=== PATIENT | male | born 1935 | race Caucasian/White ===

== ENCOUNTER 2021-06-06 19:06 | Emergency (ER) | payer OTHER ==
[~2021-06-06] VITALS: Ht 180.3 cm; Wt 77.1 kg
[2021-06-06 20:32] LABS: ABSOLUTE NEUTROPHILS 4.1 thou/uL (1.4-8.2); BASOPHILS 0.8 % (0.0-2.0); EOSINOPHILS 4.9 % (0.0-3.0); HEMATOCRIT 36.6 % (42.0-52.0); HEMOGLOBIN 12.4 gm/dL (14.0-18.0); LYMPHOCYTES 22.9 % (24.0-44.0); MCH 32.5 pg (26.0-34.0); MCHC 33.8 g/dL (28.0-37.0); MCV 96.1 fL (80.0-100.0); MONOCYTES 8.4 % (1.0-8.0); PLATELET COUNT 187 thou/uL (150-400); RDW 13.9 % (10.5-14.5); WBC 6.6 thou/uL (4.0-11.0)
[2021-06-06 20:38] LABS: CALCIUM 9.3 mg/dL (8.5-10.1); CREATININE 1.7 mg/dL (0.7-1.3); POTASSIUM 4.1 mmol/L (3.5-5.1)
[2021-06-06 20:45] LABS: ALBUMIN 3.4 g/dL (3.4-5.0); APTT 50.6 Seconds (24.5-32.8); INR 2.24; PROTIME 23.5 Seconds (10.5-12.1); TOTAL BILIRUBIN 1.1 mg/dL (0.2-1.0); TOTAL PROTEIN 7.1 g/dL (6.4-8.2)
[2021-06-06 21:15] LABS: URINE BILIRUBIN NEGATIVE (Negative); URINE BLOOD TRACE (Negative); URINE CLARITY CLEAR; URINE COLOR YELLOW; URINE GLUCOSE-RANDOM* NEGATIVE (Negative); URINE KETONES NEGATIVE (Negative); URINE LEUKOCYTES-REFLEX NEGATIVE (Negative); URINE NITRITE-REFLEX NEGATIVE (Negative); URINE PROTEIN (DIPSTICK) NEGATIVE (Negative); URINE SPECIFIC GRAVITY 1.025 (1.005-1.035); URINE UROBILINOGEN 0.2 E.U./dl (0.2-1.0)
[2021-06-06] MEDS ORDERED: DOXYCYCLINE 10100 MG PO (21:36)
[2021-06-06 21:56] VITALS: BP 126/66
== END 2021-06-06 22:41 | disposition home or self-care (01) ==
LOC: ER 19:06
PROVIDERS: Nurse Practitioner
DX: S81.802A Unspecified open wound, left lower leg, initial encounter (principal); S40.012A Contusion of left shoulder, initial encounter; S09.90XA Unspecified injury of head, initial encounter; I83.029 Varicose veins of left lower extremity with ulcer of unspecified site; I87.8 Other specified disorders of veins; W07.XXXA Fall from chair, initial encounter; Y93.89 Activity, other specified; Y92.89 Other specified places as the place of occurrence of the external cause; Y99.8 Other external cause status

== ENCOUNTER → 2021-06-13 | Outpatient (CLI) | payer OTHER ==
[~2021-06-13] MED LIST: DOXYCYCLINE 10100 MG PO
== END ==
LOC: HYPER 08:10
PROVIDERS: ATTEND Emergency Medicine
DX: E11.622 Type 2 diabetes mellitus with other skin ulcer (principal); L97.822 Non-pressure chronic ulcer of other part of left lower leg with fat layer exposed; I87.2 Venous insufficiency (chronic) (peripheral); R60.1 Generalized edema; Z79.01 Long term (current) use of anticoagulants; Z79.899 Other long term (current) drug therapy

== ENCOUNTER → 2021-06-27 | Outpatient (CLI) | payer OTHER | LOC: HYPER 10:47 | PROVIDERS: ATTEND Emergency Medicine | DX: E11.622 Type 2 diabetes mellitus with other skin ulcer (principal); L97.822 Non-pressure chronic ulcer of other part of left lower leg with fat layer exposed; L84 Corns and callosities; I87.2 Venous insufficiency (chronic) (peripheral); R60.1 Generalized edema; Z79.01 Long term (current) use of anticoagulants ==

== ENCOUNTER 2021-07-03 05:41 | Emergency (ER) | payer OTHER ==
[~2021-07-03] VITALS: Ht 180.3 cm; Wt 75.7 kg
[2021-07-03] MEDS ORDERED: OMEGA 3 1,0001 EACH PO (06:06)
[2021-07-03] MEDS ORDERED: METFORMIN HCL500 MG PO (06:07)
[2021-07-03] MEDS ORDERED: LISINOPRIL10 MG PO (06:07)
[2021-07-03] MEDS ORDERED: LOPRESSOR50 MG PO (06:08)
[2021-07-03 06:35] LABS: ABSOLUTE NEUTROPHILS 4.8 thou/uL (1.4-8.2); BASOPHILS 0.8 % (0.0-2.0); EOSINOPHILS 7.3 % (0.0-3.0); HEMATOCRIT 35.5 % (42.0-52.0); HEMOGLOBIN 11.9 gm/dL (14.0-18.0); LYMPHOCYTES 15.7 % (24.0-44.0); MCH 32.4 pg (26.0-34.0); MCHC 33.4 g/dL (28.0-37.0); PLATELET COUNT 174 thou/uL (150-400); POLYS 69.2 % (36.0-66.0); RBC 3.66 mil/uL (4.50-6.00); RDW 14.2 % (10.5-14.5); WBC 6.9 thou/uL (4.0-11.0)
[2021-07-03 06:37] LABS: URINE BILIRUBIN NEGATIVE (Negative); URINE BLOOD NEGATIVE (Negative); URINE CLARITY CLEAR; URINE COLOR YELLOW; URINE GLUCOSE-RANDOM* NEGATIVE (Negative); URINE KETONES NEGATIVE (Negative); URINE LEUKOCYTES-REFLEX NEGATIVE (Negative); URINE NITRITE-REFLEX NEGATIVE (Negative); URINE PROTEIN (DIPSTICK) NEGATIVE (Negative); URINE SPECIFIC GRAVITY 1.025 (1.005-1.035); URINE UROBILINOGEN 0.2 E.U./dl (0.2-1.0)
[2021-07-03 06:50] LABS: CALCIUM 8.6 mg/dL (8.5-10.1); CREATININE 1.6 mg/dL (0.7-1.3); POTASSIUM 4.2 mmol/L (3.5-5.1)
[2021-07-03] MEDS ORDERED: KEFLEX250 MG PO (07:25)
[2021-07-03] MEDS ORDERED: IBUPROFEN 600600 M1 PO (07:25)
[2021-07-03] MEDS ORDERED: APAP W/CODEINE1 TA2 PO (07:32)
[2021-07-03 07:42] VITALS: BP 130/72
--- NOTE | 2021-07-03 12:38 | EKG ---
[place] [address] [employer] [place] [address] ELECTROCARDIOGRAM REPORT Name: ASHLY SANTA Room #: REG AKIKO Powell#: [id number] Admission: 07/03/21 Attend Phys: Discharge: Date of : 39 Report #: [id number] [facility] ED Test Date: 2021-07-03 Test Time: 06:05:39 Pat Name: ASHLY SANTA Department: Room: Gender: M Mysql Database Developer: alissa ryan : 1935 Requested By: Roosevelt Tesfaye Order Number: [id number] MD: Riki Claudio Measurements Intervals Keyser Rate: 72 P: DC: QRS: -51 QRSD: 140 T: 143 QT: 432 QTc: 473 Interpretive Statements Probable sinus rhythm Occasional premature ventricular complexes Left bundle branch block Compared to ECG 05/16/1998 16:40:00 Ventricular premature complex(es) now present Left bundle-branch block now present Electronically Signed On 07-03-2021 12:38:50 [employer]ARC[employer] DETECTIVE by Riki Claudio [email or web address] <ELECTRONICALLY SIGNED> By: Riki Claudio MD, [facility] 07/03/21 1238 [id number] 4 Riki Claudio MD, FACC /EPI
== END 2021-07-03 20:20 | disposition home or self-care (01) ==
LOC: ER 05:41
PROVIDERS: Emergency Medicine
DX: S20.213A Contusion of bilateral front wall of thorax, initial encounter (principal); R53.1 Weakness; Z79.899 Other long term (current) drug therapy; W19.XXXA Unspecified fall, initial encounter; Y93.89 Activity, other specified; Y92.89 Other specified places as the place of occurrence of the external cause; Y99.8 Other external cause status

== ENCOUNTER 2021-07-25 03:05 | Inpatient (IN) | payer OTHER ==
[2021-07-25] VITALS (7 sets, daily range): BP systolic 95–166; BP diastolic 36–73
[~2021-07-25] VITALS: Ht 182.9 cm; Wt 77.0 kg
--- NOTE | ~2021-07-25 | EMS ---
[address] [address] EMS Patient Care Report Name: ASHLY SANTA Room #: 449-I ADM IN M.R.#: [id number] Admission: 07/25/21 Attend Phys: Fausto Miller MD Discharge: Date of : 39 Report #: [id number] THIS REPORT FOR: //name// Report Transmitted: 07/27/2021 11:08 EMS Care Summary [place], [place]/[facility] Incident [id number] @ 07/25/2021 02:36 Incident Location [address] [facility] Patient ASHLY ELLIOTT Male, 86 Years 1935 Patient Address [address] [place] [address] Patient History Cardiac Condition - Other, Patient Medications Warfarin, Chief Complaint SOB w/ exertion Disposition Transported No Lights/[place] Dispatch Reason Breathing Problem Transported To [facility] Narrative pt found seated in recliner chair, a&o, NAD. he states he hasn't felt well since getting his Covid booster several days ago. for past 6 hrs he c/o increased SOB w/ movement and c/o "runny nose". staff reports pt is afebrile. pt req eval at [facility]. he is able to seat self on cot, VS, refuses IV, transport w/o incident. [address] [address] EMS Patient Care Report Name: ASHLY SANTA Room #: 449-I [facility] IN ..#: [id number] Admission: 07/25/21 Attend Phys: Fausto Miller MD Discharge: Date of : 39 Report #: [id number] Initial Vitals @02:48P: 54,R: 20,BP: 122/76,Pain: 0/10,GCS: 15,SpO2: 91,Revised Trauma: 12, Assessments @02:46MENTAL:No Abnormalities,SKIN:No Abnormalities,HEENT:Head/Face: Other,LUNG SOUNDS:ABDOMEN:PELVIS//GI:EXTREMITIES:PULSE:Radial: 2+ Normal,NEURO:Other, Impression Shortness of breath Procedures @02:57 Oxygen FlowRate: 4 Device: Nasal Cannula (NC) Response: UnchangedSucceeded @02:50 Stretcher Response: Unchanged @02:56 3-Lead ECG Response: Unchanged @02:46 ALS Assessment Timeline 02:35,Call Received 02:35,Dispatch Notified 02:36,Dispatched 02:37,En Route 02:41,On Scene 02:46,At Patient 02:46,ALS Assessment, 02:48,BP: 122/76 M,PULSE: 54,RR: 20 R,SPO2: 91 Ox,ETCO2: ,BG: ,PAIN: 0,GCS: 15, 02:50,Stretcher,Response: Unchanged 02:56,3-Lead ECG,Response: Unchanged 02:57,Oxygen FlowRate: 4 Device: Nasal Cannula (NC) Response: UnchangedSucceeded, 02:59,Depart Scene 03:02,At Destination 03:14,Call Closed Disclaimer v1.1 Copyright 2020 [employer], [employer] This EMS Care Summary contains data elements from the applicable legal record (which may be displayed differently). It is designed to provide pertinent information for the following purposes: continuity of care, clinical quality, and state data reporting. The complete legal record is available to ED staff and administrators of the receiving hospital in [employer]'s Patient Tracker. All data is provided "as is."
[~2021-07-25 03:05] MED LIST changes: +APAP W/CODEINE1 TA2 PO; +IBUPROFEN 600600 M1 PO; +KEFLEX250 MG PO; +LISINOPRIL10 MG PO; +LOPRESSOR50 MG PO; +METFORMIN HCL500 MG PO; +OMEGA 3 1,0001 EACH PO
[2021-07-25] MEDS ORDERED: ALPHAGAN P5 ML OPHTHALMIC (03:26)
[2021-07-25] MEDS ORDERED: REFRESH CELLUVI1 APP OPHTHALMIC (03:28)
[2021-07-25] MEDS ORDERED: HYDROCHLOROTH12.5 M1 PO (03:29)
[2021-07-25] MEDS ORDERED: CHILDREN'S ZYRT10 M1 PO (03:29)
[2021-07-25] MEDS ORDERED: XALATAN2.5 M1 OPHTHALMIC (03:30)
[2021-07-25] MEDS ORDERED: LIPITOR20 MG PO ×2 (03:31→03:32)
[2021-07-25] MEDS ORDERED: CARDIOTAB PO (03:33)
[2021-07-25] MEDS ORDERED: TIMOLOL MALEATE5 M2 OPHTHALMIC (03:34)
[2021-07-25] MEDS ORDERED: VITAMIN E1000 UNIT PO (03:35)
[2021-07-25] MEDS ORDERED: WARFARIN SODIUM5 MG PO (03:35)
[2021-07-25 03:52] LABS: ABSOLUTE NEUTROPHILS 4.9 thou/uL (1.4-8.2); BASOPHILS 0.9 % (0.0-2.0); HEMATOCRIT 34.9 % (42.0-52.0); HEMOGLOBIN 11.7 gm/dL (14.0-18.0); LYMPHOCYTES 16.6 % (24.0-44.0); MCH 32.7 pg (26.0-34.0); MCHC 33.5 g/dL (28.0-37.0); MCV 97.5 fL (80.0-100.0); MONOCYTES 6.2 % (1.0-8.0); PLATELET COUNT 220 thou/uL (150-400); POLYS 69.3 % (36.0-66.0); RBC 3.58 mil/uL (4.50-6.00); RDW 15.3 % (10.5-14.5); WBC 7.1 thou/uL (4.0-11.0)
[2021-07-25 04:04] LABS: CALCIUM 8.9 mg/dL (8.5-10.1); CREATININE 2.1 mg/dL (0.7-1.3)
[2021-07-25 04:05] LABS: POTASSIUM 4.9 mmol/L (3.5-5.1)
[2021-07-25 04:14] LABS: TOTAL BILIRUBIN 0.9 mg/dL (0.2-1.0); TOTAL PROTEIN 6.9 g/dL (6.4-8.2)
--- NOTE | 2021-07-25 07:27 | EKG ---
[address] [address] ELECTROCARDIOGRAM REPORT Name: ASHLY SANTA Room #: 449-I ADM IN M.R.#: [id number] Admission: 07/25/21 Attend Phys: Guido Gray MD Discharge: Date of : 39 Report #: [id number] [facility] ED Test Date: 2021-07-25 Test Time: 03:15:34 Pat Name: ASHLY SANTA Department: Room: [facility] Gender: M Plater Helper: steve : 1935 Requested By: Chris Ward Order Number: [id number] MD: Edu Trinh Measurements Intervals [place] Rate: 52 P: OR: QRS: -54 QRSD: 155 T: 156 QT: 490 QTc: 456 Interpretive Statements Atrial fibrillation Ventricular premature complex Left bundle branch block Compared to ECG 07/03/2021 06:05:39 No significant changes Electronically Signed On 07-25-2021 7:27:18 [employer] INSTALLER by Edu Trinh [email or web address] <ELECTRONICALLY SIGNED> By: Edu Trinh MD, [facility] 07/25/21 0727 4 Edu Trinh MD, FACC /EPI
[2021-07-25 09:45] LABS: FOLIC ACID 25.1 ng/mL (8.6-58.9)
[2021-07-25 11:22] LABS: INR 2.97; PROTIME 30.7 Seconds (10.5-12.1)
--- NOTE | 2021-07-25 13:27 | 2DMMODE ---
[facility] [place] [address] 2 D/M-MODE ECHOCARDIOGRAM Name: ASHLY SANTA Room #: 449-I ADM IN .R.#: [id number] Admission: 07/25/21 Attend Phys: Guido Gray MD Discharge: Date of : 39 Report #: [id number] THIS REPORT FOR: cc: NO FAMILY PHYSICIAN or PCP NO FAMILY PHYSICIAN or PCP Dimitris Hutchins MD ~ APPROVED REPORT Study performed: 07/25/2021 13:01:16 EXAM: Comprehensive 2D, Doppler, and color-flow Echocardiogram Patient Location: In-Patient Room #: 449 Status: routine BSA: 1.99 HR: 70 bpm Rhythm: Atrial Fibrillation Other Information Study Quality: Adequate Indications Aortic Valve Disease Congestive Heart Failure Mitral Valve Disease Dyspnea CAD 2D Dimensions IVSd: 12.81 (7-11mm) LVOT Diam: 21.42 (18-24mm) LVDd: 53.62 mm PWd: 11.32 (7-11mm) Ascending Ao: 31.34 (22-36mm) LVDs: 41.92 (25-40mm) Left Atrium: 48.45 (27-40mm) Aortic Root: 35.72 mm Volumes Left Atrial Volume (Systole) Single Plane 4CH: 49.58 mL Single Plane 2CH: 38.46 mL Biplane LA Volume: 52.00 mL LA ESV Index: 26.00 mL/m2 Aortic Valve AoV Peak Enrrique.: 2.15 m/s [facility] [address] [place] [address] 2 D/M-MODE ECHOCARDIOGRAM Name: ASHLY SANTA Room #: 449-I ADM IN ..#: [id number] Admission: 07/25/21 Attend Phys: Guido Gray, Discharge: Date of : 39 Report #: [id number] AO Peak Gr.: 18.55 mmHg LVOT Max P.81 mmHg AO Mean Gr.: 10.17 mmHg LVOT Mean P.44 mmHg AO V2 Mean: 1.51 m/s LVOT Max V: 0.45 m/s AO V2 VTI: 52.79 cm LVOT Mean V: 0.31 m/s GRISELDA (VTI): 0.87 cm2 LVOT V1 VTI: 12.70 cm GRISELDA Vmax: 0.75 cm2 SV (LVOT): 45.75 mL Mitral Valve E/A Ratio: 86.0 MV Decel. Time: 182.80 ms MV E Max Enrrique.: 0.86 m/s MV A Enrrique.: 0.01 m/s MV PHT: 53.01 ms Pulmonary Valve PV Peak Enrrique.: 0.66 m/s PV Peak Gr.: 1.76 mmHg FL End Vmax: 0.99 m/s Tricuspid Valve TR Peak Enrrique.: 3.29 m/s RAP Estimate: 7.00 mmHg TR Peak Gr.: 43.29 mmHg RVSP: 50.00 mmHg Left Ventricle The left ventricle is normal size. There is normal LV segmental wall motion. Mild concentric left ventricular hypertrophy. Left ventricular systolic function is moderately decreased. LVEF is 35-40%. This study is not technically sufficient to allow evaluation of the LV diastolic function due to atrial fibrillation. Right Ventricle The right ventricle is normal size. Right ventricle is mildly hypokinetic. Atria The left atrium size is normal. Small PFO is noted. Doppler suggests left to right interatrial shunt. Right atrium is mildly dilated. Aortic Valve The aortic valve is normal in structure. Mechanical aortic valve is present. No information on size Trace to mild aortic regurgitation. There is no aortic valvular stenosis. Mitral Valve The mitral valve is normal in structure. Mild to moderate mitral [facility] [address] [place] [address] 2 D/M-MODE ECHOCARDIOGRAM Name: ASHLY SANTA Room #: 449-I [address] IN [facility]#: [id number] Admission: 07/25/21 Attend Phys: Guido Gray, Discharge: Date of : 39 Report #: [id number] regurgitation. No evidence of mitral valve stenosis. Tricuspid Valve The tricuspid valve is normal in structure. Moderate tricuspid regurgitation. PAP 50 mmHg Pulmonic Valve The pulmonary valve is normal in structure. Mild to moderate pulmonic regurgitation. Great Vessels The aortic root is normal in size. IVC is normal in size and collapses >50% with inspiration. The pulmonary artery is normal. Pericardium There is no pericardial effusion. <Conclusion> The left ventricle is normal size. Mild concentric left ventricular hypertrophy. LVEF is 35-40%. The right ventricle is normal size. The left atrium size is normal. Right atrium is mildly dilated. Mechanical aortic valve is present. No information on size Trace to mild aortic regurgitation. The mitral valve is normal in structure. Mild to moderate mitral regurgitation. The tricuspid valve is normal in structure. Moderate tricuspid regurgitation. PAP 50 mmHg The pulmonary valve is normal in structure. Mild to moderate pulmonic regurgitation. The aortic root is normal in size. There is no pericardial effusion. Small PFO is noted. Doppler suggests left to right interatrial shunt. <ELECTRONICALLY SIGNED> By: Dimitris Hutchins MD 07/25/217 26 26 Dimitris Hutchins MD /INF
--- NOTE | 2021-07-25 13:46 | NUR ---
WOUND CONSULT; THE LEFT BUTTOCKS HAS A 0.2 X 0.2 X 0.1 WOUND OF PRESSURE VS URINE RELATED ESCORIATION WHICH IS MILD. NO S/S OF INFECTION. PATIENT DENIES PAIN OR ANY OTHER COMPLAINT. RECCOMMENDATION; -ADD A LOW AIR LOSS BED PUMP. -CONSIDER A STEINBERG. --BARRIER CREAM TO BILATERAL BUTTOCKS AND SACRUM BID. DISCUSSED WITH RN.
--- NOTE | 2021-07-25 15:12 | NUR ---
PT ADMITTED RELATED TO CHF EXACERBATION. CM REVIEWED CHART AND SPOKE WITH CARE TEAM. CM MET WITH PT AT BEDSIDE THIS DAY. PT APPEARED TO BE A&O X4. CM ROLE INTRODUCED. PT INDICATED HE LIVES AT [facility]. PT INDICATED HE HAS A FWW AND A CANE FOR HOME USE. PT INDICATED THAT HIS PCP IS A PHYSICIAN OVER AT [facility]. PT INDICATED HE PLANS TO RETURN HOME ONCE MEDICALLY STABLE. CM CALLED AND SPOKE WITH PT'S DTR TJ TOVAR AND SHE CONFIRMED THE ABOVE. SHE INDICATED THAT PT'S PCP IS DR. BENJAMIN AND THAT PT HADN'T HAD HOME O2 [facility]. SHE INDICATED THAT PT HAD BEEN ON SERVICE WITH [facility] FOR WOUND CARE AND THERAPY. ALL PLAN FOR PT TO RETURN TO [facility] WITH RESUMPTION OF [facility] ONCE MEDICALLY STABLE. CM NOTIFIED THEM OF PT'S ADMISSION. CM FOLLOWING.
--- NOTE | 2021-07-25 15:22 | NUR ---
RN RECIEVED PT THIS AM NEW ADMISSION. RN COMPLETED ADMISSION DATABASE AND ASSESSMENT ON PT. RN TRIED TO GET PT BLOOD SUGAR AT LUNCH AFTER BEING ORDERED, PT REFUSED AND SAID THAT HE ONLY CHECKS HIS BS AT NIGHT TIME.
[2021-07-26 01:01] VITALS: BP 101/51
[2021-07-26 02:06] LABS: GLYCOHEMOGLOBIN (HGB A1C) 6.2 % (4.8-5.6)
[2021-07-26 05:56] LABS: ABSOLUTE NEUTROPHILS 5.1 thou/uL (1.4-8.2); BASOPHILS 0.9 % (0.0-2.0); HEMATOCRIT 32.4 % (42.0-52.0); HEMOGLOBIN 10.9 gm/dL (14.0-18.0); MCHC 33.6 g/dL (28.0-37.0); MCV 98.3 fL (80.0-100.0); MONOCYTES 6.5 % (1.0-8.0); PLATELET COUNT 195 thou/uL (150-400); POLYS 73.6 % (36.0-66.0); RBC 3.29 mil/uL (4.50-6.00); RDW 15.1 % (10.5-14.5); WBC 6.9 thou/uL (4.0-11.0)
[2021-07-26 06:13] LABS: CREATININE 1.7 mg/dL (0.7-1.3); MAGNESIUM 1.8 mg/dL (1.8-2.4); POTASSIUM 4.2 mmol/L (3.5-5.1)
[2021-07-26 06:15] LABS: INR 3.29; PROTIME 33.9 Seconds (10.5-12.1)
[2021-07-26 07:04] VITALS: BP 118/64
--- NOTE | 2021-07-26 09:43 | NUR ---
Assess due to notification of wound-wound care has assessed and pt with left buttock pressure vs excoriation, no signs infection. Admit with CHF/SOA. No wt loss since May. Visit during breakfast and pt eating 100% plus asking for additional naina crackers. Reviewed low Na diet with pt; pt did not realize he needed to watch salt, and stated he has never had CHF. Needs education reinforcement. Otherwise low nutrition risk
[2021-07-26 11:16] VITALS: BP 111/54
--- NOTE | 2021-07-26 14:48 | NUR ---
PT RESTING COMFORTABLY. PT AFEBRILE, ADEQUATE UOP, NO BM, GOOD APPETITE. PT NEEDS TO HAVE A DEFINITIVE PLAN IN PLACE. ASKED MD TO PLEASE CALL SON TO GIVE UPDATE. PT AND FAMILY HAVE BEEN THOUROUGHLY UPDATED AND EDUCATED. PT SLOWLY PROGRESSING TOWARDS POC.
[2021-07-26 15:00] VITALS: BP 118/65
[2021-07-26 19:25] VITALS: BP 100/43; BP 106/53
--- NOTE | 2021-07-27 02:47 | NUR ---
ASSESSMENT DOCUMENTED.PT BEEN RESTING IN NO ACUTE DISTRESS.A/OX4.VSS.ON O2 AT 2LITERS PNC.NO RESP DISTRESS NOTED OR REPORTED.PT DENIES ANY CONCERNS AT THIS AT TIME.WILL CONT TO MONITOR PER POC.
[2021-07-27 05:46] VITALS: BP 124/71
[2021-07-27 06:45] LABS: INR 4.28; PROTIME 43.5 Seconds (10.5-12.1)
[2021-07-27 07:00] VITALS: BP 129/74
[2021-07-27] MEDS ORDERED: LASIX 40 MG TAB40 M1 PO (13:04)
--- NOTE | 2021-07-27 13:59 | NUR ---
CARE TEAM HAD INDICATED THAT PT WOULD BE MEDICALLY STABLE TO DC TO [facility] THIS DAY. CM MET WITH PT AT BEDSIDE AND PT INDICATED HE WASN'T RECEPTIVE TO [facility]. PT STATED HE WANTED TO RETURN TO [facility] [address] WITH [facility]. CM SPOKE WITH SON AND HE WAS AWARE AND AGREEABLE. CM NOTIFIED HOSPITALIST AND HE VISITED WITH PT AND INDICATED THAT HE WANTED PT TO STAY AND HAVE SOME BREATHING TREATMENTS AND LOOK AT POSSIBLE DC HOME TOMORROW WITH HH. EX OX TO BE DONE TOMORROW PRIOR TO DC. PT'S DTR WAS AT BEDSIDE AND WILL NOTIFY PT'S SON STERLING. CM UPDATED BOP LIAISON. CM FOLLOWING REGARDNG DC PLANNING.
[2021-07-27 17:53] LABS: URINE BILIRUBIN NEGATIVE (Negative); URINE BLOOD NEGATIVE (Negative); URINE CLARITY CLEAR; URINE COLOR YELLOW; URINE GLUCOSE-RANDOM* NEGATIVE (Negative); URINE KETONES NEGATIVE (Negative); URINE LEUKOCYTES-REFLEX NEGATIVE (Negative); URINE NITRITE-REFLEX NEGATIVE (Negative); URINE PROTEIN (DIPSTICK) NEGATIVE (Negative); URINE UROBILINOGEN 0.2 E.U./dl (0.2-1.0)
[2021-07-27 19:30] VITALS: BP 112/60
[2021-07-28 00:03] VITALS: BP 123/69
--- NOTE | 2021-07-28 03:33 | NUR ---
PT RESTING IN NO ACUTE DISTRESS AT THIS TIME.VSS, A/OX3.PT WAS COMPLAINING OF SHORTNESS OF BREATH,ON ASSESSMENT NOTED PT HAVING AUDIBLE WHEEZING.O2 SAT 86% ON 02 AT 2LITERS.O2 IMCREASED TO 3LITERS,BALANCING MACHINE SET UP WORKER NOTIFIED,NEB TX PRN ORDERED.NEB TX PER RT W/RELIEF.PT DENIES CHEST PAIN OR ANY OTHER CONCERNS.ASSESSMENT COMPLETED DOCUMENTED.
[2021-07-28 04:51] VITALS: BP 115/57
[2021-07-28 06:12] LABS: HEMATOCRIT 33.8 % (42.0-52.0); HEMOGLOBIN 11.3 gm/dL (14.0-18.0); MCH 32.8 pg (26.0-34.0); MCHC 33.6 g/dL (28.0-37.0); MCV 97.7 fL (80.0-100.0); RBC 3.46 mil/uL (4.50-6.00)
[2021-07-28 06:15] LABS: INR 3.91; PROTIME 39.9 Seconds (10.5-12.1)
[2021-07-28 06:17] LABS: CALCIUM 9.1 mg/dL (8.5-10.1); CREATININE 1.7 mg/dL (0.7-1.3)
[2021-07-28 07:30] VITALS: BP 130/64
--- NOTE | 2021-07-28 10:52 | NUR ---
WOUND CARE F/U; THE LEFT BUTTOCKS WOUND IS VIRTUALLY HEALED. THE PATIENTS HOB IS GREATER THAN 30 DEGREES EACH TIME I ASSESS. IVAN ENCOURAGED AND EDUCATED THE PATIENT WITH NO SUCCESS WITH COMPLIANCE. THE PATIENT IS ON A LOW AIR LOSS SURFACE SINCE ADMISSION. DISCUSSED WITH JANETH
--- NOTE | 2021-07-28 16:41 | NUR ---
PT ASSESSED AT START OF SHIFT. ALERT, PLEASANT. EATING FAIR. DR. DOYLE IN EARLY AM. TEACHING DONE REGARDING MONITORING HIS PO FLUIDS HE STATED HE NORMALLY DRINKS ALOT OF WATER. AMBULATED W/ THERAPY AND NEEDING TOO MUCH O2 FOR DISCHARGE AT THIS TIME AND WILL GO TO [facility] FOR A FEW DAYS UNTIL O2 NEEDS BETTER. SON IN FOR VISIT THIS AFTERNOON.
[2021-07-28 19:33] VITALS: BP 121/70
[2021-07-29 00:12] VITALS: BP 107/60
[2021-07-29 05:04] VITALS: BP 100/55
--- NOTE | 2021-07-29 05:21 | NUR ---
PT BEEN SLEEPING IN NO ACUTE DISTRESS.A/OX4.PT WAS VERY SLEEPY AT THE BEGINNING OF THE SHIFT AND VOICED BEING TIRED.HE SLEPT ALMOST ALL NIGHT.NO WHEEZING OR RESPIRATORY DISTRESS REPORTED OR NOTED THROUGH THE NOC.PT MUCH AWAKE THIS AM AND STATED HE FEELS GOOD AND RESTED.ASSESSMENT COMPLETED DOCUMENTED.POC TO DISCHARGE TO SNF TODAY.
[2021-07-29 05:55] LABS: INR 2.79
[2021-07-29 07:00] VITALS: BP 106/62
[2021-07-29 08:26] VITALS: BP 106/62
--- NOTE | 2021-07-29 16:29 | NUR ---
[facility] ABLE TO ACCEPT PT FOR ADMISSION THIS DAY. CHART COPY MADE. ORDERS FAXED. PT AND SON AWARE AND AGREEABLE. VAN TRANSPORT WITH 3L O2 ARRANGED FOR 1700. NURSE GIVEN NUMBER FOR REPORT. NO OTHER CM INTERVENTION INDICATED. CASE CLOSED.
--- NOTE | 2021-07-29 17:33 | NUR ---
ASSESSMENT CHARTED. PT ALERT AND ORIENTED. VSS. DENIED HAVING PAIN OR DISCOMFORT. SEEN BY DR. DOYLE. ORDERS GIVEN TO DISCHARGE PT TO SNF. REPORT CALLED IN TO THE FACILITY. FAMILY NOTIFIED.
== END 2021-07-29 17:35 | DRG 291 ==
LOC: ER 03:05 → 4W 04:42 → EROBS 04:42 → 4W 05:07
PROVIDERS: Emergency Medicine; Nurse Practitioner; ADMIT Hospitalist; ATTEND Hospitalist
DX: I13.0 Hypertensive heart and chronic kidney disease with heart failure and stage 1 through stage 4 chronic kidney disease, or unspecified chronic kidney disease (principal); I50.23 Acute on chronic systolic (congestive) heart failure; J96.01 Acute respiratory failure with hypoxia; N17.9 Acute kidney failure, unspecified; N18.9 Chronic kidney disease, unspecified; I48.91 Unspecified atrial fibrillation; I25.5 Ischemic cardiomyopathy; Z20.822 Contact with and (suspected) exposure to COVID-19; I25.10 Atherosclerotic heart disease of native coronary artery without angina pectoris; E11.22 Type 2 diabetes mellitus with diabetic chronic kidney disease; Z66 Do not resuscitate; R53.81 Other malaise; S31.829A Unspecified open wound of left buttock, initial encounter; X58.XXXA Exposure to other specified factors, initial encounter; Z95.1 Presence of aortocoronary bypass graft; Y93.89 Activity, other specified; Y92.89 Other specified places as the place of occurrence of the external cause; Y99.8 Other external cause status; Z79.01 Long term (current) use of anticoagulants; Z95.2 Presence of prosthetic heart valve; Z79.899 Other long term (current) drug therapy
CPT/HCPCS: 10045